=== PATIENT | male | born 2005 | race African-American/Black ===

== ENCOUNTER 2025-10-05 16:54 | Emergency (ER) | payer SELFPAY ==
[2025-10-05 17:16] VITALS: BP 139/80; PULSE 96; RESP 18; TEMP 37.2; O2SAT 100
[2025-10-05 20:40] VITALS: O2SAT 100
[2025-10-05 21:24] LABS: Strep Group A RT-PCR NOT DETECTED (Negative)
[2025-10-05 21:35] LABS: Influenza A QL RT-PCR Negative (Negative); Influenza B QL RT-PCR Negative (Negative); RSV RNA, RT-PCR Negative (Negative); SARS-CoV-2 RNA PCR Negative (Negative)
[2025-10-05] MEDS: ACETAMINOPHEN 500 MG TABLET 1000 MG PO (22:58)
--- NOTE | 2025-10-05 23:21 | ED_ITS ---
HPI - General Adult General Chief complaint: Upper Respiratory Infection Stated complaint: sore throat, headache Time Seen by Provider: 10/05/25 21:06 History of Present Illness HPI narrative: 20-year-old male presenting with concerns for ongoing illness for the last 4 days. Symptoms include headache, myalgias, decreased appetite, fatigue, neck pain, vomiting, diarrhea, and sore throat. Denies abdominal pain, chest pain /shortness of breath, and fever/chills. Reports a family member was recently diagnosed with strep. States that he took OTC medications which helped but his symptoms kept coming back. Related Data Allergies Allergy/AdvReac Type Severity Reaction Status Date / Time No Known Allergies Allergy Verified 10/05/25 22:53 Review of Systems Review of Systems: All systems reviewed & are unremarkable except as noted in HPI and below Exam Narrative: GENERAL: No acute distress. HEAD: Normocephalic, atraumatic. EYES: PERRLA and EOMI. ENT: Nares clear, no rhinorrhea or epistaxis. Mucous membranes moist. Oropharynx without tonsillar hypertrophy, bilateral exudates. Cerumen obscures view of the TMs. Denies otalgia. NECK: Supple. No carotid bruits or JVD. Left-sided posterior chain lymphadenopathy. CHEST: Clear to auscultation. No respiratory distress. No wheezes rales or rhonchi HEART: Regular rate and rhythm. No murmur heard. Normal peripheral pulses. ABDOMEN: Soft, nontender, nondistended, decreased bowel sounds. EXTREMITIES: Normal range of motion. No edema. SKIN: Warm, dry, no rash. NEURO: No focal deficits. Alert and oriented x3. PSYCH: Normal mood and affect Course Vital Signs Vital signs: Vital Signs Temperature 99 F 10/05/25 17:16 Pulse Rate 96 10/05/25 17:16 Respiratory Rate 18 10/05/25 17:16 Blood Pressure 139/80 10/05/25 17:16 Pulse Oximetry 100 10/05/25 17:16 Oxygen Delivery Room Air 10/05/25 17:16 Temperature 99 F 10/05/25 17:16 Pulse Rate 96 10/05/25 17:16 Respiratory Rate 18 10/05/25 17:16 Blood Pressure 139/80 10/05/25 17:16 Pulse Oximetry 100 10/05/25 20:40 Oxygen Delivery Room Air 10/05/25 20:40 MDM MDM Narrative Medical decision making narrative: 20-year-old male presenting with concerns for ongoing illness for the last 4 days. Symptoms include headache, myalgias, decreased appetite, fatigue, neck pain, vomiting, diarrhea, and sore throat. Denies abdominal pain, chest pain /shortness of breath, and fever/chills. Reports a family member was recently diagnosed with strep. States that he took OTC medications which helped but his symptoms kept coming back. COVID, Flu, RSV, strep testing all negative. I recommended a chest x-ray, baseline labs, and mono testing and the patient declined. I had a very thorough conversation with the patient about the likelihood of having a self-limiting viral illness and reviewed self-care measures. Risks of an incomplete evaluation and treatment were discussed with the patient, including potential for or permanent disability. Patient seems to understand these risks, but still desires to refuse further care. Patient recommended to follow up with PCP in the next possible interval. Referral provided. Specifically, patient was told they can return to the ED at any time to resume care. Differential Diagnosis Differential Diagnosis: Differential diagnostic considerations for upper respiratory infection include upper respiratory infection, croup, otitis media, sinusitis, viral infection, bronchitis, influenza, pharyngitis, strep, uvulitis. Lab Data [facility] Lab Attestation statement: I personally reviewed the patient's lab results. Labs: Lab Results 10/05/25 Range/Units 20:46 Influenza A (RT-PCR) Negative (Negative) Influenza B (RT-PCR) Negative (Negative) RSV (RT-PCR) Negative (Negative) SARS-CoV-2 RNA (RT-PCR) Negative (Negative) Group A Strep (PCR) Not detected (Negative) Discharge Plan Discharge Clinical Impression: Viral illness Patient Disposition: Home Condition: Stable Instructions: Viral Syndrome (ED) Additional Instructions: Return to the emergency department for worsening symptoms or any other concerns. Remain well-hydrated and get plenty of rest. Take anti-inflammatories (Aleve, Ibuprofen, Naproxen, etc) or Tylenol as needed for aches and pains. Flonase for nasal congestion. Zyrtec for runny nose. Lozenges or Chloraseptic spray for sore throat. Follow up with primary care doctor. Patient Language: Croatian Follow-up/Referrals: Don Vann DO [Physician, Family Practice] PHYSICIAN NOT ON STAFF,NONSTAFF [Primary Care Provider]
[2025-10-05 23:24] VITALS: BP 124/62; PULSE 62; RESP 18; TEMP 36.4; O2SAT 100
== END 2025-10-05 23:25 | disposition home or self-care (01) ==
PROVIDERS: Emergency Medicine
DX: B34.9 Viral infection, unspecified (principal); Z20.822 Contact with and (suspected) exposure to COVID-19
CPT/HCPCS: 87637; 87651; 99283; A9270